=== PATIENT | male | born 1965 | race Caucasian/White ===

== ENCOUNTER → 2017-11-26 11:01 | Outpatient (REF) | payer MEDICARE, BC, SELFPAY ==
[2017-11-26 13:51] LABS: Chol/HDL Ratio 7.7 (1-3.5); Cholesterol 307 mg/dL (140-200); HDL Cholesterol 40 mg/dL (27-67)
[2017-11-26 13:54] LABS: Triglycerides 421 mg/dL (30-200)
[2017-11-26 14:01] LABS: Alanine Aminotransferase 26 U/L (12-78); Albumin Level 3.8 gm/dL (3.4-5.0); Albumin/Globulin Ratio 1.1 (1.1-1.8); Alkaline Phosphatase 84 U/L (46-116); Anion Gap 13.5 mEq/L (5-15); Aspartate Amino Transferase 18 U/L (15-37); Bilirubin,Total 0.3 mg/dL (0.2-1.0); Blood Urea Nitrogen 18 mg/dL (7-18); Calcium 8.9 mg/dL (8.5-10.1); Carbon Dioxide 26 mmol/L (21.0-32.0); Chloride 106 mmol/L (98-107); Creatinine,Serum 0.99 mg/dL (0.70-1.30); Estimated Glomerular Filt Rate 79 ml/min (>60); Free T4 (Free Thyroxine) 1.32 ng/dl (0.76-1.46); GFR (African American) 96 ML/MIN (>60); Globulin 3.6 gm/dl (1.3-3.2); Glucose 122 mg/dL (74-106); Potassium 5.5 mmoL/L (3.5-5.1); Sodium 140 mmol/L (136-145); Thyroid Stimulating Hormone 3.82 uIU/ml (0.358-3.740); Total Protein,Serum 7.4 gm/dL (6.4-8.2)
[2017-11-26 14:15] LABS: Basophils # 0.1 K/mm3 (0-0.2); Basophils % 0.8 % (0.1-2.0); Eosinophils # 0.3 K/mm3 (0.0-0.4); Hematocrit 38.7 % (42.0-52.0); Hemoglobin 15.4 g/dL (14.1-18.0); Lymphocytes # 2.7 K/mm3 (0.7-4.5); Lymphocytes % 31.3 K/mm3 (10-50); Mean Corpuscular HGB Conc 39.8 g/dL (31.8-35.4); Mean Corpuscular Hemoglobin 37.6 pg (27.0-31.2); Mean Corpuscular Volume 94.5 fl (80-94); Mean Platelet Volume 9.8 fl (7.4-10.4); Monocytes # 0.6 K/mm3 (0.1-1.0); Monocytes % 6.5 % (1.7-9.3); Neutrophils % 57.4 % (37.0-80.0); Platelet Count 208 K/mm3 (142-424); Red Cell Distribution Width 13.8 % (11.5-17.5); White Blood Count 8.6 K/mm3 (4.8-10.8)
[2017-11-26 15:03] LABS: Erythrocyte Sedimentation Rate 15 mm/hr (0-20)
[2017-11-26 19:47] LABS: Amphetamine/Metha Screen,Urine Negative ng/mL (<1000); Barbiturates Screen,Urine Negative ng/mL (<200); Benzodiazepines Screen,Urine Negative ng/mL (200); Cannabinoid Screen,Urine Negative ng/mL (<50); Cocaine Screen,Urine Negative ng/g (<300); Methadone Screen,Urine Negative ng/mL (<300); Opiate Screen,Urine Negative ng/mL (<300); Phencyclidine Screen,Urine Negative ng/mL (<25)
[2017-11-27 20:13] LABS: Vitamin D 25 Hydroxy 20.3 ng/mL (30.0-100.0)
== END ==
LOC: LAB 11:01
PROVIDERS: Visit Provider Nurse Practitioner Family
DX: M54.2 Cervicalgia (principal); R53.83 Other fatigue; Z79.899 Other long term (current) drug therapy; M25.50 Pain in unspecified joint; R73.9 Hyperglycemia, unspecified
CPT/HCPCS: 80053; 80061; 80305; 82652; 83036; 84439; 84443; 85025; 85651

== ENCOUNTER → 2017-11-26 15:15 | Outpatient (CLI) | payer MEDICARE, BC, SELFPAY | PROVIDERS: Visit Provider Nurse Practitioner Family | DX: R73.9 Hyperglycemia, unspecified (principal) | CPT/HCPCS: 83036 ==

== ENCOUNTER 2017-12-01 10:21 | Outpatient (CLI) | payer MEDICARE, BC, SELFPAY ==
--- NOTE | 2017-12-01 10:26 | XR_ITS ---
EXAM: XR lumbar spine 2-3V HISTORY: ITS.REASON: pain ORDERING PHYSICIAN: Freda Barragan PATIENT AGE: 52 years COMPARISON: None FINDINGS: Normal alignment. Minimal osteophyte formation along superior endplate of L4 No fracture or dislocation. No lytic or blastic change. No significant degenerative change. The disc spaces are preserved. Incidental vascular calcification with an aortic stent at the L2 level IMPRESSION: Minimal degenerative change otherwise negative lumbar spine
--- NOTE | 2017-12-01 10:26 | XR_ITS ---
EXAM: XR cervical spine 2V HISTORY: Neck pain ITS.REASON: pain ORDERING PHYSICIAN: Freda Barragan PATIENT AGE: 52 years COMPARISON: None FINDINGS: Normal alignment. No fracture or dislocation. No lytic or blastic change. No significant degenerative change. The disc spaces are preserved. Incidental carotid calcifications noted on the left. Vascular stent is present at the left subclavian or carotid origin IMPRESSION: 1. Negative cervical spine. 2. Incidental left carotid calcifications
[2017-12-01 11:24] LABS: PHA INR Fingerstick 1.2 (0.9-1.1)
== END 2017-12-01 11:30 | disposition home or self-care (01) ==
LOC: ACC 10:24
PROVIDERS: PCP Nurse Practitioner Family; Visit Provider Nurse Practitioner Family
DX: Z79.01 Long term (current) use of anticoagulants (principal); Z51.81 Encounter for therapeutic drug level monitoring; I82.409 Acute embolism and thrombosis of unspecified deep veins of unspecified lower extremity; M54.2 Cervicalgia; M54.5 Low back pain
CPT/HCPCS: 72040; 72100; 85610; 99211; G0463

== ENCOUNTER 2017-12-08 11:31 | Outpatient (CLI) | payer MEDICARE, BC, SELFPAY ==
[2017-12-08 15:02] LABS: PHA INR Fingerstick 3.2 (0.9-1.1)
== END 2017-12-08 15:04 | disposition home or self-care (01) ==
LOC: ACC 11:32
PROVIDERS: PCP Emergency Medicine; Visit Provider Emergency Medicine
DX: Z79.01 Long term (current) use of anticoagulants (principal); Z51.81 Encounter for therapeutic drug level monitoring; Z86.718 Personal history of other venous thrombosis and embolism
CPT/HCPCS: 85610; 99211; G0463

== ENCOUNTER 2017-12-16 11:31 | Outpatient (CLI) | payer MEDICARE, BC, SELFPAY ==
[2017-12-16 12:36] LABS: INR 6.45 (0.9-1.1); Prothrombin Time 62.9 seconds (9.4-11.8)
== END 2017-12-17 10:42 | disposition home or self-care (01) ==
LOC: ACC 11:32
PROVIDERS: PCP Emergency Medicine; Visit Provider Emergency Medicine
DX: Z79.01 Long term (current) use of anticoagulants (principal); Z51.81 Encounter for therapeutic drug level monitoring; Z86.718 Personal history of other venous thrombosis and embolism
CPT/HCPCS: 36415; 85610; 99211; G0463

== ENCOUNTER 2017-12-21 11:18 | Outpatient (CLI) | payer MEDICARE, BC, SELFPAY ==
[2017-12-21 13:23] LABS: PHA INR Fingerstick 2.4 (0.9-1.1)
== END 2017-12-21 13:24 | disposition home or self-care (01) ==
LOC: ACC 11:21
PROVIDERS: PCP Emergency Medicine; Visit Provider Nurse Practitioner Family
DX: Z86.718 Personal history of other venous thrombosis and embolism (principal); Z51.81 Encounter for therapeutic drug level monitoring; Z79.01 Long term (current) use of anticoagulants
CPT/HCPCS: 85610; 99211; G0463

== ENCOUNTER 2017-12-25 10:53 | Outpatient (CLI) | payer MEDICARE, BC, SELFPAY ==
[2017-12-25 12:04] LABS: PHA INR Fingerstick 2.3 (0.9-1.1)
== END 2017-12-25 15:55 | disposition home or self-care (01) ==
LOC: ACC 10:54
PROVIDERS: Nurse Practitioner Family; PCP Emergency Medicine; Visit Provider Emergency Medicine
DX: Z79.01 Long term (current) use of anticoagulants (principal); Z51.81 Encounter for therapeutic drug level monitoring; Z86.718 Personal history of other venous thrombosis and embolism
CPT/HCPCS: 85610; 99211; G0463

== ENCOUNTER 2017-12-29 13:47 | Outpatient (RCR) | payer MEDICARE, BC, SELFPAY | END 2017-12-29 13:48 | disposition home or self-care (01) | LOC: OT 13:47 | PROVIDERS: PCP Emergency Medicine; Visit Provider Emergency Medicine | DX: M79.642 Pain in left hand (principal) | CPT/HCPCS: 97110; 97165 ==

== ENCOUNTER → 2018-01-05 13:56 | Outpatient (CLI) | payer MEDICARE, BC, SELFPAY ==
[2018-01-05 15:25] LABS: Blood Urea Nitrogen 26 mg/dL (7-18); Calcium 9.4 mg/dL (8.5-10.1); Carbon Dioxide 26 mmol/L (21.0-32.0); Chloride 103 mmol/L (98-107); Creatinine,Serum 1.08 mg/dL (0.70-1.30); Estimated Glomerular Filt Rate 72 ml/min (>60); GFR (African American) 87 ML/MIN (>60); Glucose 132 mg/dL (74-106); Sodium 141 mmol/L (136-145)
== END ==
PROVIDERS: Internal Medicine Cardiovascular Disease; Nurse Practitioner Family; PCP Emergency Medicine; Visit Provider Emergency Medicine
DX: Z79.01 Long term (current) use of anticoagulants (principal); Z51.81 Encounter for therapeutic drug level monitoring; Z86.718 Personal history of other venous thrombosis and embolism
CPT/HCPCS: 36415; 80048; 85610

== ENCOUNTER → 2018-01-15 06:55 | Outpatient (CLI) | payer MEDICARE, BC, SELFPAY ==
--- NOTE | 2018-01-15 06:56 | CA_ITS ---
PROCEDURE: 2-D M-mode and color Doppler study INDICATIONS FOR THE TEST: Chest pain+ COPD Heart Murmur Tobacco Smoking+ Palpitations Fatigue Syncope Edema Hypertension Diabetes Mellitus Rheumatic Fever SOB MAYO Obesity Hyperlipidemia Family History HD Additional History CAD, STENT PATIENT INFORMATION HEIGHT:71 WEIGHT:237 GENDER: Male B/P:148/92 2-D/M-MODE INTERPRETATION: 2-D MEASUREMENTS OBSERVED VALUES IN CMS Right Ventricular Dimension (RVDd) 2.2 Interventricular Septum (Thickness)(IVsd) 1.1 Left Ventricular Internal Dimensions(LVIDd) 4.5 Left Ventricular Posterior Wall (Thickness)(LVPWd) 1.0 Aortic Root 3.3 Aortic Cusp Separation 2.3 Left Atrial Dimensions (LAD) 4.8 2D 1. Left atrium is mildly enlarged, left ventricle is normal size, mild concentric left ventricular hypertrophy, visually estimated ejection fraction 55% with no obvious regional wall motion abnormality, septum has sigmoid configuration. 2. The right atrium and right ventricle are normal size and contractility. 3. The aortic valve is minimally thickened and fibrosed. 4. The mitral and tricuspid valve are grossly normal. 5. The pulmonic valve is poorly visualized. 6. No significant pericardial effusion noted. DOPPLER INTERROGATION: Doppler interrogation of the aortic, mitral and tricuspid valvular presence of mild mitral and tricuspid regurgitation, tricuspid regurgitant jet velocity is insufficient for calculation of the right ventricular systolic pressure, grade 1 diastolic dysfunction seen without tissue Doppler evidence of raised left atrial pressure. CONCLUSION: 1. Mildly enlarged left atrium, normal left ventricular size, mild concentric left ventricular hypertrophy, visually estimated ejection fraction 55% with no obvious regional wall motion abnormality, septum has sigmoid configuration. Grade 1 diastolic dysfunction seen without tissue Doppler evidence of raised left atrial pressure. 2. Mild mitral and tricuspid regurgitation 3. No significant pericardial effusion noted.
--- NOTE | 2018-01-15 06:56 | NM_ITS ---
History and Indications: Hypertension, hyperlipidemia, tobacco use, family history, chest pain, shortness of breath, palpitations and fatigue Procedure: Patient received a 0.4 mg of Lexiscan, resting heart rate was 80 bpm, resting blood pressure 148/89, with Lexiscan maximum heart rate achieved was 98 bpm is less than 85% of the maximum predicted heart rate and a blood pressure was 110/65. With Lexiscan patient complained of shortness of breath nausea and chest pressure Electrocardiogram: Resting echocardiogram showed sinus rhythm nonspecific ST-T changes, with Lexiscan there is less than 1.[address] segment depression noted from the baseline EKG. The EKG portion of the Lexiscan Myoview is nondiagnostic. Cardiac stress and resting SPECT images: Cardiac stress and rest SPECT images were obtained using technetium 99 Myoview 31.0 mCi at stress and 10.7 mCi at rest. Gated SPECT further analysis of segmental wall motion and calculation of the ejection fraction also done. Cardiac stress and rest images show a mild fixed defect in the inferior wall with normal contractility in the gated SPECT is likely secondary to soft tissue attenuation from diaphragm, no reversible ischemia seen. Computer derived ejection fraction is 56% with no obvious regional wall motion abnormality, right ventricle is normal size and contractility. Conclusion: 1. The EKG portion of the Lexiscan Myoview is nondiagnostic. 2. No obvious scintigraphic evidence of reversible ischemia seen, computer derived ejection fraction is 56% with no obvious regional wall motion abnormality, right ventricle is normal size and contractility. 3. Normal Lexiscan Myoview study
== END ==
PROVIDERS: PCP Emergency Medicine; Visit Provider Internal Medicine Cardiovascular Disease
DX: R94.31 Abnormal electrocardiogram [ECG] [EKG] (principal); I10 Essential (primary) hypertension; E78.2 Mixed hyperlipidemia; F17.200 Nicotine dependence, unspecified, uncomplicated; Z86.718 Personal history of other venous thrombosis and embolism
CPT/HCPCS: 78452; 93017; 93306; A9502; J2785

== ENCOUNTER → 2018-01-26 11:28 | Outpatient (REF) | payer MEDICARE, BC, SELFPAY ==
[2018-01-26 15:46] LABS: Amphetamine/Metha Screen,Urine Negative ng/mL (<1000); Barbiturates Screen,Urine Negative ng/mL (<200); Benzodiazepines Screen,Urine Negative ng/mL (<200); Cannabinoid Screen,Urine Negative ng/mL (<50); Cocaine Screen,Urine Negative ng/mL (<300); Methadone Screen,Urine Negative ng/mL (<300); Opiate Screen,Urine Negative ng/mL (<300); Phencyclidine Screen,Urine Negative ng/mL (<25)
== END ==
LOC: LAB 11:28
PROVIDERS: Visit Provider Nurse Practitioner Family
DX: M54.5 Low back pain (principal)
CPT/HCPCS: 80305

== ENCOUNTER → 2018-01-27 10:12 | Outpatient (CLI) | payer MEDICARE, BC, SELFPAY ==
[2018-01-27 10:41] LABS: INR 1.85 (0.9-1.1); Prothrombin Time 18.7 seconds (9.4-11.8)
[2018-01-27 11:21] LABS: Anion Gap 13.1 mEq/L (5-15); Blood Urea Nitrogen 18 mg/dL (7-18); Calcium 8.5 mg/dL (8.5-10.1); Carbon Dioxide 27 mmol/L (21.0-32.0); Chloride 106 mmol/L (98-107); Creatinine,Serum 1.15 mg/dL (0.70-1.30); Estimated Glomerular Filt Rate 66 ml/min (>60); GFR (African American) 80 ML/MIN (>60); Glucose 135 mg/dL (74-106); Potassium 4.1 mmoL/L (3.5-5.1); Sodium 142 mmol/L (136-145)
== END ==
PROVIDERS: Urology; PCP Emergency Medicine; Referring Provider Internal Medicine Cardiovascular Disease; Visit Provider Emergency Medicine
DX: Z79.01 Long term (current) use of anticoagulants (principal); Z51.81 Encounter for therapeutic drug level monitoring; I82.409 Acute embolism and thrombosis of unspecified deep veins of unspecified lower extremity
CPT/HCPCS: 36415; 80048; 85610

== ENCOUNTER 2018-02-04 13:00 | Outpatient (RCR) | payer MEDICARE, BC, SELFPAY ==
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
== END 2018-02-04 13:01 | disposition home or self-care (01) ==
LOC: PT 13:00
PROVIDERS: PCP Emergency Medicine; Visit Provider Emergency Medicine
DX: M54.9 Dorsalgia, unspecified (principal)
CPT/HCPCS: 97010; 97014; 97110; 97163; G0283

== ENCOUNTER → 2018-02-08 15:03 | Outpatient (POV) | payer MEDICARE, BC, SELFPAY ==
[2018-02-08 15:25] VITALS: BP 176/100; PULSE 106; RESP 18; O2SAT 98
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
== END ==
PROVIDERS: PCP Emergency Medicine; Visit Provider Clinical Nurse Specialist Family Health
DX: M54.5 Low back pain (principal)
CPT/HCPCS: 99202

== ENCOUNTER → 2018-02-16 10:19 | Outpatient (CLI) | payer MEDICARE, BC, SELFPAY | PROVIDERS: PCP Emergency Medicine; Visit Provider Clinical Nurse Specialist Family Health | DX: M54.5 Low back pain (principal); M51.36 Other intervertebral disc degeneration, lumbar region ==

== ENCOUNTER → 2018-02-18 11:16 | Outpatient (CLI) | payer MEDICARE, BC, SELFPAY ==
--- NOTE | 2018-02-18 11:18 | MR_ITS ---
MR lumbar spine wo con, MR 3-d myelogram/MRCP HISTORY: Low Back Pain with bilateral Leg pain, numbness, and tingling. ITS.REASON: BACK PAIN ORDERING PHYSICIAN: Eloise Zurita PATIENT AGE: 53 years Comparison: X-RAY 12/01/17 TECHNIQUE: Standard multiplanar multiecho sequences are performed without contrast. 3-D MIP and myelographic images are also rendered and reviewed FINDINGS: There is normal alignment. The spinal cord ends at the L1 level. Motion artifact is present on the axial images. T12-L4 has an unremarkable appearance. L4-5: Minimal concentric bulging disc with small broad-based central disc protrusion without impingement. L5-S1: Bulging disc with bilateral pars defects and mild facet hypertrophic change with moderate bilateral foraminal narrowing left slightly greater than right . IMPRESSION: 1. Minimal bulging disc with small central disc protrusion L4-L5. 2. Bulging disc with bilateral foraminal narrowing at L5-S1 left slightly greater than right along with bilateral pars defects without listhesis. 3. No extruded herniated disc evident
== END ==
PROVIDERS: PCP Emergency Medicine; Visit Provider Clinical Nurse Specialist Family Health
DX: M54.5 Low back pain (principal)
CPT/HCPCS: 72148; 76376

== ENCOUNTER → 2018-02-23 10:54 | Outpatient (POV) | payer MEDICARE, BC, SELFPAY ==
[2018-02-23 11:12] VITALS: BP 152/98; PULSE 97; RESP 18; O2SAT 98; BMI 34.4
--- NOTE | 2018-02-23 11:30 | HMH.PAINSOAP ---
[facility] Pain Management SOAP Note Subjective:: Patient is a pleasant 53-year-old white male who presents today for follow-up of his most recent MRI. Patient does have an L4-L5 bulging disc along with L5-S1 bulging disc. Patient states that his pain is constant he rates it a 7 out of 10 today. Patient states he has had epidural injections in the past however he states he also received OxyContin from his previous pain clinic. Patient and I discussed that we would not be putting him on OxyContin given the pathology. Patient states he has tried anti-inflammatories and failed them. Patient is on anticoagulation therapy. We will find out if he can come off of his Coumadin for injective therapy. Patient states his pain is in his low back and radiates into both of his legs. ROS General: no recent weight change, no fever, no sleep disturbances Respiratory: no cough, no shortness of air, no recurring pulmonary infections Cardiovascular/Peripheral Vascular: No chest pain, No palpitations, no edema, no shortness of breath. Gastrointestinal: no incontinence, normal bowel movements reported Genitourinary: no incontinence Musculoskeletal: Back pain, leg pain Psychiatric: normal mood/ affect Neurological: [denies weakness in extremities], [denies balance issues] Objective:: Physical Exam General: Alert and oriented x3, no acute distress, pleasant and cooperative, [on room air] Lungs: Resps E/U, Symmetrical chest expansion, Eyes: PERRL Musculoskeletal: Flexion and extension of lumbar spine somewhat guarded secondary to pain, deep tendon reflexes normal, strength in upper and lower extremities [5/5], slightly antalgic gait noted, positive straight leg test bilaterally at 30? 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 I will follow-up with the patient after his injection and reassess his symptoms. Patient is on Coumadin therapy and understands he has to be off of this prior to his injection. We will make sure that he can come off of it. Patient's tried and failed physical therapy, anti-inflammatories. Patient is continuing a home stretching regimen. Patient states that his previous pain clinic he was getting epidurals along with OxyContin. I discussed with him that given his pathology we would not be putting him on any narcotics at this time. This note was dictated using voice recognition software and may contain errors or omissions
--- NOTE | 2018-02-23 11:34 | P.CONS_ITS ---
[facility] Pain Management SOAP Note Subjective:: Patient is a pleasant 53-year-old white male who presents today for follow-up of his most recent MRI. Patient does have an L4-L5 bulging disc along with L5- S1 bulging disc. Patient states that his pain is constant he rates it a 7 out of 10 today. Patient states he has had epidural injections in the past however he states he also received OxyContin from his previous pain clinic. Patient and I discussed that we would not be putting him on OxyContin given the pathology. Patient states he has tried anti-inflammatories and failed them. Patient is on anticoagulation therapy. We will find out if he can come off of his Coumadin for injective therapy. Patient states his pain is in his low back and radiates into both of his legs. ROS General: no recent weight change, no fever, no sleep disturbances Respiratory: no cough, no shortness of air, no recurring pulmonary infections Cardiovascular/Peripheral Vascular: No chest pain, No palpitations, no edema, no shortness of breath. Gastrointestinal: no incontinence, normal bowel movements reported Genitourinary: no incontinence Musculoskeletal: Back pain, leg pain Psychiatric: normal mood/ affect Neurological: [denies weakness in extremities], [denies balance issues] Objective:: Physical Exam General: Alert and oriented x3, no acute distress, pleasant and cooperative, [ on room air] Lungs: Resps E/U, Symmetrical chest expansion, Eyes: PERRL Musculoskeletal: Flexion and extension of lumbar spine somewhat guarded secondary to pain, deep tendon reflexes normal, strength in upper and lower extremities [5/5], slightly antalgic gait noted, positive straight leg test bilaterally at 30? 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 I will follow-up with the patient after his injection and reassess his symptoms. Patient is on Coumadin therapy and understands he has to be off of this prior to his injection. We will make sure that he can come off of it. Patient's tried and failed physical therapy, anti-inflammatories. Patient is continuing a home stretching regimen. Patient states that his previous pain clinic he was getting epidurals along with OxyContin. I discussed with him that given his pathology we would not be putting him on any narcotics at this time. This note was dictated using voice recognition software and may contain errors or omissions
--- NOTE | 2018-02-23 15:58 | PC.NURSE ---
APPROVAL OBTAINED FOR PT TO DISCONTINUE COUMADIN 5-7 DAYS PRIOR TO LUMBAR EPIDURAL STEROID INJECTION PER DR MENDEZ.
== END ==
PROVIDERS: PCP Emergency Medicine; Visit Provider Clinical Nurse Specialist Family Health
DX: M51.16 Intervertebral disc disorders with radiculopathy, lumbar region (principal)
CPT/HCPCS: 99213

== ENCOUNTER 2018-02-24 10:44 | Outpatient (CLI) | payer MEDICARE, BC, SELFPAY ==
[2018-02-24 12:50] LABS: PHA INR Fingerstick 1.1 (0.9-1.1)
== END 2018-02-24 13:10 | disposition home or self-care (01) ==
LOC: ACC 10:45
PROVIDERS: PCP Emergency Medicine; Visit Provider Emergency Medicine
DX: Z79.01 Long term (current) use of anticoagulants (principal); Z51.81 Encounter for therapeutic drug level monitoring
CPT/HCPCS: 85610; 99211; G0463

== ENCOUNTER → 2018-03-01 11:47 | Outpatient (REF) | payer MEDICARE, BC, SELFPAY ==
[2018-03-01 14:03] LABS: Amphetamine/Metha Screen,Urine Negative ng/mL (<1000); Barbiturates Screen,Urine Negative ng/mL (<200); Benzodiazepines Screen,Urine Negative ng/mL (<200); Cannabinoid Screen,Urine Negative ng/mL (<50); Cocaine Screen,Urine Negative ng/mL (<300); Methadone Screen,Urine Negative ng/mL (<300); Opiate Screen,Urine Negative ng/mL (<300); Phencyclidine Screen,Urine Negative ng/mL (<25)
== END ==
LOC: LAB 11:47
PROVIDERS: Visit Provider Nurse Practitioner Family
DX: M54.5 Low back pain (principal)
CPT/HCPCS: 80305

== ENCOUNTER → 2018-08-11 18:53 | Outpatient (CLI) | payer MEDICARE, BC, SELFPAY ==
[2018-08-11 19:18] LABS: Anion Gap 16.4 mEq/L (5-15); Blood Urea Nitrogen 24 mg/dL (7-18); Calcium 9.4 mg/dL (8.5-10.1); Carbon Dioxide 22 mmol/L (21.0-32.0); Chloride 106 mmol/L (98-107); Creatinine,Serum 1.09 mg/dL (0.70-1.30); Estimated Glomerular Filt Rate 70 ml/min (>60); GFR (African American) 85 ML/MIN (>60); Glucose 161 mg/dL (74-106); Potassium 4.4 mmoL/L (3.5-5.1); Sodium 140 mmol/L (136-145)
== END ==
PROVIDERS: Visit Provider Emergency Medicine
DX: R51 Headache (principal)
CPT/HCPCS: 80048

== ENCOUNTER → 2018-09-08 15:15 | Outpatient (CLI) | payer MEDICARE, BC, SELFPAY ==
[2018-09-08 16:17] LABS: Amphetamine/Metha Screen,Urine Negative ng/mL (<1000); Barbiturates Screen,Urine Negative ng/mL (<200); Benzodiazepines Screen,Urine Negative ng/mL (<200); Cannabinoid Screen,Urine Negative ng/mL (<50); Cocaine Screen,Urine Negative ng/mL (<300); Methadone Screen,Urine Negative ng/mL (<300); Opiate Screen,Urine Positive ng/mL (<300); Phencyclidine Screen,Urine Negative ng/mL (<25)
== END ==
PROVIDERS: Visit Provider Emergency Medicine
DX: M54.5 Low back pain (principal); Z79.891 Long term (current) use of opiate analgesic
CPT/HCPCS: 80305

== ENCOUNTER → 2018-11-05 13:58 | Outpatient (CLI) | payer MEDICARE, BC, SELFPAY ==
[2018-11-05 15:01] LABS: Amphetamine/Metha Screen,Urine Negative ng/mL (<1000); Barbiturates Screen,Urine Negative ng/mL (<200); Benzodiazepines Screen,Urine Negative ng/mL (<200); Cannabinoid Screen,Urine Negative ng/mL (<50); Cocaine Screen,Urine Negative ng/mL (<300); Methadone Screen,Urine Negative ng/mL (<300); Opiate Screen,Urine Negative ng/mL (<300); Phencyclidine Screen,Urine Negative ng/mL (<25)
[2018-11-15 09:08] LABS: Oxycodone (GC/MS) 538 ng/mL (Cutoff=100)
[2018-11-15 12:28] LABS: Opiates Negative (Cutoff=100); Oxymorphone (GC/MS) 508 ng/mL (Cutoff=100)
== END ==
PROVIDERS: Visit Provider Emergency Medicine
DX: Z79.899 Other long term (current) drug therapy (principal); M79.643 Pain in unspecified hand
CPT/HCPCS: 80305; 80361; 80365; G0480

== ENCOUNTER 2018-12-03 07:30 | Emergency (ER) | payer MEDICARE, BC, SELFPAY ==
[2018-12-03 07:33] VITALS: BP 116/74; PULSE 126; RESP 22; TEMP 36.7; O2SAT 98; BMI 30.7
--- NOTE | 2018-12-03 07:40 | PC.NURSE ---
when asked to provide a urine specimen pt provided a liquid that was clear in color and cold. When pt was asked about this to make sure it was urine or not, pt became aggrivated and stated I'll just leave
[2018-12-03 07:42] VITALS: BP 116/74; PULSE 126; RESP 22; TEMP 36.7; O2SAT 98
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
== END 2018-12-03 07:42 | disposition left against medical advice (07) ==
LOC: ER 07:56
PROVIDERS: Emergency Provider Emergency Medicine
DX: Z53.21 Procedure and treatment not carried out due to patient leaving prior to being seen by health care provider (principal); R20.2 Paresthesia of skin
CPT/HCPCS: G0463; 99211; 99281

== ENCOUNTER 2018-12-04 21:40 | Emergency (ER) | payer MEDICARE, BC, SELFPAY ==
[2018-12-04 21:41] VITALS: BP 139/56; PULSE 100; RESP 18; TEMP 36.7; O2SAT 98; BMI 31.2
--- NOTE | 2018-12-04 22:00 | XR_ITS ---
XR chest portable HISTORY: ITS.REASON: chest pain ORDERING PHYSICIAN: Ramesh Medina MD PATIENT AGE: 53 years COMPARISON: 11/10/2017 FINDINGS: Low lung lines. There is mild cardiomegaly without failure. Left hilum is slightly prominent and may be related to vasculature. Upright PA and lateral chest May BE of further value. Linear densities present in the right lung base consistent with an area of atelectasis. The remaining lungs are clear. IMPRESSION: Low lung volumes with cardiomegaly, prominent left hilum, and right basilar atelectasis. Suggest PA and lateral chest for further evaluation
[2018-12-04 22:15] LABS: Basophils # 0.1 K/mm3 (0-0.2); Basophils % 0.6 % (0.1-2.0); Eosinophils # 0.5 K/mm3 (0.0-0.4); Eosinophils % 5.5 % (0.1-12.0); Hematocrit 36.3 % (42.0-52.0); Hemoglobin 12.6 g/dL (14.1-18.0); Lymphocytes # 2.3 K/mm3 (0.7-4.5); Lymphocytes % 26.1 % (10-50); Mean Corpuscular HGB Conc 34.6 g/dL (31.8-35.4); Mean Corpuscular Hemoglobin 30.7 pg (27.0-31.2); Mean Corpuscular Volume 88.9 fl (80-94); Mean Platelet Volume 9.1 fl (7.4-10.4); Monocytes # 0.6 K/mm3 (0.1-1.0); Monocytes % 6.9 % (1.7-9.3); Neutrophils # 5.3 K/mm3 (1.8-7.8); Neutrophils % 60.9 % (37.0-80.0); Platelet Count 215 K/mm3 (142-424); Red Blood Count 4.09 M/mm3 (4.60-6.20); Red Cell Distribution Width 13.7 % (11.5-17.5); White Blood Count 8.7 K/mm3 (4.8-10.8)
[2018-12-04 22:28] LABS: Alanine Aminotransferase 30 U/L (12-78); Albumin Level 3.3 gm/dL (3.4-5.0); Albumin/Globulin Ratio 0.9 (1.1-1.8); Alkaline Phosphatase 108 U/L (46-116); Anion Gap 13.2 mEq/L (5-15); Aspartate Amino Transferase 28 U/L (15-37); Bilirubin,Total 0.2 mg/dL (0.2-1.0); Blood Urea Nitrogen 30 mg/dL (7-18); Calcium 7.7 mg/dL (8.5-10.1); Carbon Dioxide 28 mmol/L (21.0-32.0); Chloride 104 mmol/L (98-107); Creatinine Clearance Estimated 71 mL/min (50-200); Creatinine,Serum 1.71 mg/dL (0.70-1.30); Estimated Glomerular Filt Rate 42 ml/min (>60); GFR (African American) 51 ML/MIN (>60); Globulin 3.6 gm/dl (1.3-3.2); Glucose 141 mg/dL (74-106); Potassium 3.2 mmoL/L (3.5-5.1); Salicylate 2.2 mg/dL (2.8-20.0); Sodium 142 mmol/L (136-145); Total Protein,Serum 6.9 gm/dL (6.4-8.2)
[2018-12-04 22:34] LABS: Acetaminophen 0 ug/mL (10-30); Ethyl Alcohol 0 mg/dL (0-99)
[2018-12-04 22:49] VITALS: BP 123/78; PULSE 98; RESP 20; O2SAT 99
--- NOTE | 2018-12-04 22:50 | PC.NURSE ---
Pt sleeping, no signs of distress noted, will continue to monitor.
[2018-12-05 00:16] VITALS: BP 144/71; PULSE 97; RESP 16; O2SAT 98
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
--- NOTE | 2018-12-05 00:34 | PC.NURSE ---
clerk supervisor aware of the situation.
--- NOTE | 2018-12-05 00:35 | PC.NURSE ---
stockroom supervisor at the pts bedside at this time.
--- NOTE | 2018-12-05 00:36 | PC.NURSE ---
PD is here.
--- NOTE | 2018-12-05 00:40 | PC.NURSE ---
PD is with the pt at this time, staff is no longer at the bedside.
--- NOTE | 2018-12-05 00:44 | HMH.EDGENADL ---
ED Disposition Clinical Impression: Overdose, Poisoning by opiate or related narcotic Disposition: Home, Self-Care Condition on Discharge: Fair Instructions: DI for Drug Overdose in Adults Referrals: Provider,Referral, [Primary Care Provider] - Time of Disposition: 02:00 - Critical Care Critical Care Time: No Attestation: On 12/04/18, the high probability of a clinically significant, sudden or life threatening deterioration of the following system(s) required my full and direct attention, intervention and personal management. The time I documented below is in addition to time spent performing reported procedures but includes the following listed in this critical care notation. Medical Decision Making - Medical Records Medical records reviewed: Yes: I reviewed the patient's medical records. - Taqueria Inquiry Pt receiving controlled substance: No Taqueria was queried for this patient: No Vital Signs: 12/04/18 21:41 12/04/18 22:49 12/05/18 00:16 Temperature 98.0 F Temperature Source Oral Pulse Rate Pulse Rate [Right Brachial] 100 H 98 H 97 H Respiratory Rate 18 20 16 Blood Pressure Blood Pressure [Right Arm] 139/56 L 123/78 144/71 H Blood Pressure Mean [Right Arm] 83 93 95 Blood Pressure Source [Right Arm] Automatic Cuff Automatic Cuff Automatic Cuff Blood Pressure Position [Right Arm] Sitting Sitting Sitting 02 Sat by Pulse Oximetry 98 99 98 Oxygen Delivery Method Room Air Room Air Room Air 12/05/18 01:37 Temperature 0 F L Temperature Source Pulse Rate 0 L Pulse Rate [Right Brachial] Respiratory Rate 16 Blood Pressure 000/00 L Blood Pressure [Right Arm] Blood Pressure Mean [Right Arm] Blood Pressure Source [Right Arm] Blood Pressure Position [Right Arm] 02 Sat by Pulse Oximetry Oxygen Delivery Method Room Air - Lab Data Lab results reviewed: Yes: I reviewed the patient's lab results. Lab Results 12/04/18 21:55: WBC 8.7, RBC 4.09 L, Hgb 12.6 L, Hct 36.3 L, MCV 88.9, MCH 30.7, MCHC 34.6, RDW 13.7, Plt Count 215, MPV 9.1, Neut % (Auto) 60.9, Lymph % (Auto) 26.1, [place] % (Auto) 6.9, Eos % (Auto) 5.5, Baso % (Auto) 0.6, Neut # (Auto) 5.3, Lymph # (Auto) 2.3, [place] # (Auto) 0.6, Eos # (Auto) 0.5 H, Baso # (Auto) 0.1 12/04/18 21:55: Sodium 142, Potassium 3.2 L, Chloride 104, Carbon Dioxide 28, Anion Gap 13.2, BUN 30 H, Creatinine 1.71 H, Estimated Creat Clear 71, Estimated GFR 42 L, Est GFR ( Amer) 51 L, Glucose 141 H, Calcium 7.7 L, Total Bilirubin 0.2, AST 28, ALT 30, Alkaline Phosphatase 108, Total Protein 6.9, Albumin 3.3 L, Globulin 3.6 H, Albumin/Globulin Ratio 0.9 L, Salicylates 2.2 L, Acetaminophen 0 L, Plasma/Serum Alcohol 0 12/05/18 00:47: Urine Color Yellow, Urine Appearance Clear, Urine pH 6.0, Ur Specific [place] 1.025, Urine Protein Negative, Urine Glucose (UA) Negative, Urine Ketones Negative, Urine Blood Negative, Urine Nitrate Negative, Urine Bilirubin Negative, Urine Urobilinogen 0.2, Ur Leukocyte Esterase Negative, Urine WBC Occasional, Amorphous Sediment Trace 12/05/18 00:47: Urine Opiates Screen Positive H, Urine Methadone Screen Negative, Ur Barbituates Screen Negative, Ur Phencyclidine Scrn Negative, Ur Amphetamines Screen Positive H, U Benzodiazepines Scrn Negative, Urine Cocaine Screen Negative, U Marijuana (THC) Screen Negative Result diagrams: 12/04/18 21:55 12/04/18 21:55 Orders (Tests/Meds): ED MEDICATIONS Discontinued Medications Generic Name Dose Route Start Last Admin Trade Name Selena PRN Reason Stop Dose Admin Sodium Chloride 1,000 mls @ 999 mls/hr 12/04/18 22:30 12/04/18 22:24 Sod Chlor 0.9% 1000ml Bag IV 12/04/18 23:30 999 mls/hr .Q1H1M ALIZE Administration Lactated Ringer's 1,000 mls @ 999 mls/hr 12/05/18 00:30 Lactated Ringer's 1000 Ml Bag IV 12/05/18 01:30 .Q1H1M ALIZE Naloxone HCl 2 mg 12/05/18 01:10 12/05/18 00:30 Narcan 2mg/2ml Syringe IV 12/05/18 01:11 2 mg ONCE ONE Administration ORDERS Categ[facility]
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
[2018-12-05 00:54] LABS: Microscopic, Urine URINE MICROSCOPIC (MICROSCOPIC)
--- NOTE | 2018-12-05 00:54 | ED_ITS ---
ED Disposition Clinical Impression: Overdose, Poisoning by opiate or related narcotic Disposition: Home, Self-Care Condition on Discharge: Fair Instructions: DI for Drug Overdose in Adults Referrals: Provider,Referral, [Primary Care Provider] - Time of Disposition: 02:00 - Critical Care Critical Care Time: No Attestation: On 12/04/18, the high probability of a clinically significant, sudden or life threatening deterioration of the following system(s) required my full and direct attention, intervention and personal management. The time I documented below is in addition to time spent performing reported procedures but includes the following listed in this critical care notation. Medical Decision Making - Medical Records Medical records reviewed: Yes: I reviewed the patient's medical records. - Taqueria Inquiry Pt receiving controlled substance: No Taqueria was queried for this patient: No Vital Signs: 12/04/18 21:41 12/04/18 22:49 12/05/18 00:16 Temperature 98.0 F Temperature Source Oral Pulse Rate Pulse Rate [Right Brachial] 100 H 98 H 97 H Respiratory Rate 18 20 16 Blood Pressure Blood Pressure [Right Arm] 139/56 L 123/78 144/71 H Blood Pressure Mean [Right Arm] 83 93 95 Blood Pressure Source [Right Arm] Automatic Cuff Automatic Cuff Automatic Cuff Blood Pressure Position [Right Arm] Sitting Sitting Sitting 02 Sat by Pulse Oximetry 98 99 98 Oxygen Delivery Method Room Air Room Air Room Air 12/05/18 01:37 Temperature 0 F L Temperature Source Pulse Rate 0 L Pulse Rate [Right Brachial] Respiratory Rate 16 Blood Pressure 000/00 L Blood Pressure [Right Arm] Blood Pressure Mean [Right Arm] Blood Pressure Source [Right Arm] Blood Pressure Position [Right Arm] 02 Sat by Pulse Oximetry Oxygen Delivery Method Room Air - Lab Data Lab results reviewed: Yes: I reviewed the patient's lab results. Lab Results 12/04/18 21:55: WBC 8.7, RBC 4.09 L, Hgb 12.6 L, Hct 36.3 L, MCV 88.9, MCH 30.7, MCHC 34.6, RDW 13.7, Plt Count 215, MPV 9.1, Neut % (Auto) 60.9, Lymph % (Auto) 26.1, [place] % (Auto) 6.9, Eos % (Auto) 5.5, Baso % (Auto) 0.6, Neut # (Auto) 5.3, Lymph # (Auto) 2.3, [place] # (Auto) 0.6, Eos # (Auto) 0.5 H, Baso # (Auto) 0.1 12/04/18 21:55: Sodium 142, Potassium 3.2 L, Chloride 104, Carbon Dioxide 28, Anion Gap 13.2, BUN 30 H, Creatinine 1.71 H, Estimated Creat Clear 71, Estimated GFR 42 L, Est GFR ( Amer) 51 L, Glucose 141 H, Calcium 7.7 L, Total Bilirubin 0.2, AST 28, ALT 30, Alkaline Phosphatase 108, Total Protein 6.9, Albumin 3.3 L, Globulin 3.6 H, Albumin/Globulin Ratio 0.9 L, Salicylates 2.2 L, Acetaminophen 0 L, Plasma/Serum Alcohol 0 12/05/18 00:47: Urine Color Yellow, Urine Appearance Clear, Urine pH 6.0, Ur Specific [place] 1.025, Urine Protein Negative, Urine Glucose (UA) Negative, Urine Ketones Negative, Urine Blood Negative, Urine Nitrate Negative, Urine Bilirubin Negative, Urine Urobilinogen 0.2, Ur Leukocyte Esterase Negative, Urine WBC Occasional, Amorphous Sediment Trace 12/05/18 00:47: Urine Opiates Screen Positive H, Urine Methadone Screen Negative, Ur Barbituates Screen Negative, Ur Phencyclidine Scrn Negative, Ur Amphetamines Screen Positive H, U Benzodiazepines Scrn Negative, Urine Cocaine Screen Negative, U Marijuana (THC) Screen Negative Result diagrams
[2018-12-05 00:56] LABS: Appearance,Urine CLEAR (Clear); Bilirubin,Urine Negative (Negative); Blood, Urine Negative (Negative); Color,Urine YELLOW (Yellow); Glucose,Urine (UA) Negative (Negative); Ketones,Urine Negative (Negative); Leukocyte Esterase,Urine Negative (Negative); Nitrate,Urine Negative (Negative); Protein,Urine Negative (Negative); Specific Gravity, Urine 1.025 (1.005-1.030); Urobilinogen,Urine 0.2 EU/dl (0.2)
[2018-12-05 01:01] LABS: Amorphous Sediment,Urine Trace /lpf; WBC,Urine Occasional #/hpf (0-3)
[2018-12-05 01:05] LABS: Amphetamine/Metha Screen,Urine Positive ng/mL (<1000); Barbiturates Screen,Urine Negative ng/mL (<200); Benzodiazepines Screen,Urine Negative ng/mL (<200); Cannabinoid Screen,Urine Negative ng/mL (<50); Cocaine Screen,Urine Negative ng/mL (<300); Methadone Screen,Urine Negative ng/mL (<300); Opiate Screen,Urine Positive ng/mL (<300); Phencyclidine Screen,Urine Negative ng/mL (<25)
--- NOTE | 2018-12-05 01:12 | PC.NURSE ---
0015 Pt unable to stay awake, consulted with Dr Medina an order for 2mg Narcan received.
--- NOTE | 2018-12-05 01:30 | PC.NURSE ---
police and family at bedside
[2018-12-05 01:37] VITALS: BP 000/00; PULSE 0; RESP 16; TEMP -17.7; TEMP 0; O2SAT 0
== END 2018-12-05 01:41 | disposition home or self-care (01) ==
PROVIDERS: Emergency Provider Emergency Medicine
DX: T40.1X1A Poisoning by heroin, accidental (unintentional), initial encounter (principal); I10 Essential (primary) hypertension; E03.9 Hypothyroidism, unspecified; F17.210 Nicotine dependence, cigarettes, uncomplicated
CPT/HCPCS: 71045; 80053; 80305; 80329; 81001; 85025; 93005; 96365; 96375; 99284; J2310

== ENCOUNTER 2018-12-06 05:51 | Inpatient (IN) | payer MEDICARE, BC, SELFPAY ==
[2018-12-06] VITALS (10 sets, daily range): BP systolic 126–183; BP diastolic 69–93; PULSE 90–128; RESP 17–20; TEMP 36.7–37; O2SAT 94–99; BMI 29.8; BMI 29.3
--- NOTE | 2018-12-06 06:10 | HMH.EDGENADL ---
ED Disposition Condition on Discharge: Fair - Critical Care Critical Care Time: No <Inderjit Echols - Last Filed: 12/06/18 07:59> Condition on Discharge: Good - Critical Care Critical Care Time: No <LeavittJesse - Last Filed: 12/06/18 10:12> Clinical Impression: Acute psychosis, Substance abuse Rhabdomyolysis Qualifiers: Rhabdomyolysis type: non-traumatic Qualified Code(s): M62.82 - Rhabdomyolysis Disposition: Admitted as Observation Attestation: On 12/06/18, the high probability of a clinically significant, sudden or life threatening deterioration of the following system(s) required my full and direct attention, intervention and personal management. The time I documented below is in addition to time spent performing reported procedures but includes the following listed in this critical care notation. Medical Decision Making - Taqueria Inquiry Pt receiving controlled substance: No - Lab Data Result diagrams: 12/06/18 06:25 12/06/18 06:25 <Inderjit Echols - Last Filed: 12/06/18 07:59> - Medical Records Medical records reviewed: Yes: I reviewed the patient's medical records. - Lab Data Lab results reviewed: Yes: I reviewed the patient's lab results. Result diagrams: 12/06/18 06:25 12/06/18 08:57 - CT Data CT Scan: Head Time Received: 10:[address] Reviewed: Yes: I have viewed the radiologist's interpretation Preliminary Findings: Normal/NAD - ECG Data Tracing #2 I reviewed this ECG and interpreted as documented below: Normal Sinus Rhythm: No (st 114 no stemi) <TreeJesse - Last Filed: 12/06/18 10:12> Vital Signs: 12/06/18 06:02 12/06/18 07:01 12/06/18 07:23 Temperature 98.6 F 98.6 F Temperature Source Oral Oral Pulse Rate 124 H Pulse Rate [Right] 128 H 101 H Respiratory Rate 20 20 20 Blood Pressure 138/86 Blood Pressure [Right Arm] 139/89 162/93 H Blood Pressure Mean [Right Arm] 105 116 Blood Pressure Source [Right Arm] Automatic Cuff Blood Pressure Position [Right Arm] Sitting Sitting 02 Sat by Pulse Oximetry 98 97 Oxygen Delivery Method Room Air Room Air Room Air 12/06/18 08:19 12/06/18 09:39 Temperature Temperature Source Pulse Rate Pulse Rate [Right] 107 H 105 H Respiratory Rate Blood Pressure Blood Pressure [Right Arm] 183/90 H 126/70 Blood Pressure Mean [Right Arm] 121 88 Blood Pressure Source [Right Arm] Blood Pressure Position [Right Arm] Supine 02 Sat by Pulse Oximetry 99 Oxygen Delivery Method - Lab Data Lab Results 12/06/18 06:25: WBC 13.2 H D, RBC 4.14 L, Hgb 12.8 L, Hct 36.1 L, MCV 87.4, MCH 30.9, MCHC 35.3, RDW 13.9, Plt Count 244, MPV 9.5, Neut % (Auto) 74.1, Lymph % (Auto) 17.3, [place] % (Auto) 5.7, Eos % (Auto) 2.3, Baso % (Auto) 0.6, Neut # (Auto) 9.8 H, Lymph # (Auto) 2.3, [place] # (Auto) 0.8, Eos # (Auto) 0.3, Baso # (Auto) 0.1 12/06/18 06:25: Sodium 143, Potassium 3.3 L, Chloride 105, Carbon Dioxide 29, Anion Gap 12.3, BUN 20 H D, Creatinine 1.24 D, Estimated Creat Clear 96, Estimated GFR 61, Est GFR ( Amer) 74 D, Glucose 108 H, Calcium 8.5 D, Total Bilirubin 0.5, AST 43 H D, ALT 34, Alkaline Phosphatase 103, Total Protein 7.1, Albumin 3.1 L, Globulin 4.0 H, Albumin/Globulin Ratio 0.8 L, Salicylates 2.6 L, Acetaminophen 0 L, Plasma/Serum Alcohol 0 12/06/18 06:25: Total Creatine Kinase 1160 H*, CK-MB (CK-2) 16.5 H*, CK-MB (CK-2) Rel Index 1.4, Troponin I < 0.02 12/06/18 08:10: Urine Opiates Screen Positive H, Urine Methadone Screen Negative, Ur Barbituates Screen Negative, Ur Phencyclidine Scrn Negative, Ur Amphetamines Screen Positive H, U Benzodiazepines Scrn Negative, Urine Cocaine Screen Negative, U Marijuana (THC) Screen Negative 12/06/18 08:10: Urine Color Yellow, Urine Appearance Clear, Urine pH 6.0, Ur Specific [place] 1.020, Urine Protein Negative, Urine Glucose (UA) Negative, Urine Ketones Trace, Urine Blood Negative, Urine Nitrate Negative, Urine Bilirubin Negative, Urine Urobilinogen 0.2, Ur Leukocyte [place]
--- NOTE | 2018-12-06 06:12 | PC.NURSE ---
pt here with police for medical clearance, pt is acting very hyper and states bugs are crawling under his skin, pt denies any S.I. at this time.
[2018-12-06 06:34] LABS: Basophils # 0.1 K/mm3 (0-0.2); Basophils % 0.6 % (0.1-2.0); Eosinophils # 0.3 K/mm3 (0.0-0.4); Eosinophils % 2.3 % (0.1-12.0); Hematocrit 36.1 % (42.0-52.0); Hemoglobin 12.8 g/dL (14.1-18.0); Lymphocytes # 2.3 K/mm3 (0.7-4.5); Lymphocytes % 17.3 % (10-50); Mean Corpuscular HGB Conc 35.3 g/dL (31.8-35.4); Mean Corpuscular Hemoglobin 30.9 pg (27.0-31.2); Mean Corpuscular Volume 87.4 fl (80-94); Mean Platelet Volume 9.5 fl (7.4-10.4); Monocytes # 0.8 K/mm3 (0.1-1.0); Monocytes % 5.7 % (1.7-9.3); Neutrophils # 9.8 K/mm3 (1.8-7.8); Neutrophils % 74.1 % (37.0-80.0); Platelet Count 244 K/mm3 (142-424); Red Blood Count 4.14 M/mm3 (4.60-6.20); Red Cell Distribution Width 13.9 % (11.5-17.5); White Blood Count 13.2 K/mm3 (4.8-10.8)
[2018-12-06 06:47] LABS: Alanine Aminotransferase 34 U/L (12-78); Albumin Level 3.1 gm/dL (3.4-5.0); Albumin/Globulin Ratio 0.8 (1.1-1.8); Alkaline Phosphatase 103 U/L (46-116); Anion Gap 12.3 mEq/L (5-15); Aspartate Amino Transferase 43 U/L (15-37); Bilirubin,Total 0.5 mg/dL (0.2-1.0); Carbon Dioxide 29 mmol/L (21.0-32.0); Chloride 105 mmol/L (98-107); Creatinine Clearance Estimated 96 mL/min (50-200); Creatinine,Serum 1.24 mg/dL (0.70-1.30); Estimated Glomerular Filt Rate 61 ml/min (>60); GFR (African American) 74 ML/MIN (>60); Glucose 108 mg/dL (74-106); Potassium 3.3 mmoL/L (3.5-5.1); Salicylate 2.6 mg/dL (2.8-20.0); Sodium 143 mmol/L (136-145); Total Protein,Serum 7.1 gm/dL (6.4-8.2)
[2018-12-06 06:49] LABS: Acetaminophen 0 ug/mL (10-30); Ethyl Alcohol 0 mg/dL (0-99)
[2018-12-06 06:58] LABS: Blood Urea Nitrogen 20 mg/dL (7-18)
[2018-12-06 07:05] LABS: Calcium 8.5 mg/dL (8.5-10.1)
[2018-12-06 07:06] LABS: CKMB Relative Index 1.4 U/L (0-4.0); Creatine Kinase 1160 U/L (39-308); Troponin I < 0.02 ng/ml (0.00-0.06)
[2018-12-06 07:07] LABS: Creatine Kinase MB 16.5 ng/ml (0.0-3.6)
[2018-12-06 08:24] LABS: Amphetamine/Metha Screen,Urine Positive ng/mL (<1000); Barbiturates Screen,Urine Negative ng/mL (<200); Benzodiazepines Screen,Urine Negative ng/mL (<200); Cannabinoid Screen,Urine Negative ng/mL (<50); Cocaine Screen,Urine Negative ng/mL (<300); Methadone Screen,Urine Negative ng/mL (<300); Opiate Screen,Urine Positive ng/mL (<300); Phencyclidine Screen,Urine Negative ng/mL (<25)
[2018-12-06 08:42] LABS: Microscopic, Urine URINE MICROSCOPIC (MICROSCOPIC)
[2018-12-06 08:44] LABS: Appearance,Urine CLEAR (Clear); Bilirubin,Urine Negative (Negative); Blood, Urine Negative (Negative); Color,Urine YELLOW (Yellow); Glucose,Urine (UA) Negative (Negative); Ketones,Urine TRACE (Negative); Leukocyte Esterase,Urine Negative (Negative); Nitrate,Urine Negative (Negative); Protein,Urine Negative (Negative); Urobilinogen,Urine 0.2 EU/dl (0.2)
[2018-12-06 08:53] LABS: Bacteria,Urine Trace /lpf; Squamous Epithelial Cell,Urine Occasional #/hpf (0-5); WBC,Urine Occasional #/hpf (0-3)
[2018-12-06 09:26] LABS: Anion Gap 13.9 mEq/L (5-15); Blood Urea Nitrogen 20 mg/dL (7-18); Calcium 7.7 mg/dL (8.5-10.1); Carbon Dioxide 25 mmol/L (21.0-32.0); Chloride 106 mmol/L (98-107); Creatine Kinase 1117 U/L (39-308); Creatinine Clearance Estimated 107 mL/min (50-200); Creatinine,Serum 1.11 mg/dL (0.70-1.30); Estimated Glomerular Filt Rate 69 ml/min (>60); GFR (African American) 84 ML/MIN (>60); Glucose 86 mg/dL (74-106); Sodium 142 mmol/L (136-145)
[2018-12-06 09:27] LABS: Potassium 2.9 mmoL/L (3.5-5.1)
--- NOTE | 2018-12-06 09:28 | PC.NURSE ---
er wants pt to be admitted due to low potassium
--- NOTE | 2018-12-06 09:28 | PC.NURSE ---
dr xie informed of critical labs
--- NOTE | 2018-12-06 09:31 | PC.NURSE ---
calling dr wiley who is on for service
--- NOTE | 2018-12-06 09:33 | CT_ITS ---
CT head/brain wo con HISTORY: Altered mental status, altered level consciousness, confusion/disorientation ITS.REASON: ams ORDERING PHYSICIAN: Inderjit Echols MD PATIENT AGE: 53 years COMPARISON: 08/17/2018 TECHNIQUE: Axial images obtained without contrast. Brain and bone windows reviewed. All CT scans at the facility use one or more dose reduction, viz: automated exposure control, ma/kV adjustment per patient size (including targeted exams where dose is matched to indication, i.e. head), or iterative reconstruction technique. FINDINGS: No midline shift, mass effect, intracranial hemorrhage, hydrocephalus, or extra-axial fluid collection is evident. The calvarium has an unremarkable appearance. There is opacification of the right mastoid sinus. There is also mild mucosal thickening of the ethmoid sinuses.. No sinus air-fluid levels.. IMPRESSION: No acute intracranial findings. Right mastoid and paranasal sinus disease
--- NOTE | 2018-12-06 10:00 | PC.NURSE ---
pt return from CT
--- NOTE | 2018-12-06 10:27 | PC.NURSE ---
report called to floor
[2018-12-06 10:35] LABS: Ammonia 31 umol/L (19-54)
[2018-12-06 10:52] LABS: Magnesium 1.5 mg/dL (1.4-2.2)
--- NOTE | 2018-12-06 11:12 | PC.NURSE ---
PATIENT HAS ARRIVED TO FLOOR AT THIS TIME. IS NOTED TO HAVE MANY AREAS THAT ARE SCRATCHED AND OPEN FROM PATIENT SCRATCHING. SHOWED NURSING STAFF A RED AREA NEAR GROIN THAT IS SCABBED OVER THAT HE STATES IS FROM THE BUGS THAT CAUSE HIM TO SCRATCH. FACE IS CUT FROM SCRATCHING, SKIN TEAR TO R ELBOW. PATIENT BECAME ANXIOUS WHEN PULSE OX PLACED ON FINGER YELLING OUT AND STATING THERE ARE BUGS UNDER HIS NAILS
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
--- NOTE | 2018-12-06 12:55 | SW/DCPLANNER ---
I have spoke with [employer], Ozzie Garnica. Ozzie came in to see this patient when his shift began this morning. Ozzie has stated that if patient was ready for discharge from the ED then [facility] was going to transport this patient to [facility]. Ozzie has stated that since patient has been admitted they will let us handle arrangement to [facility]. CM will evaluate this patient once patient is medically stable for discharge.
--- NOTE | 2018-12-06 13:16 | HMH.PHACONS ---
- Pharmacy Consult Date: 12/06/18 Time: 13:16 Referring provider: DR. SOLORIO Reason for Consult:: VANCOMYCIN DOSING Allergies and ADEs:: Allergies Allergy/AdvReac Type Severity Reaction Status Date / Time No Known Allergies Allergy Verified 11/05/18 10:39 Home Medications:: Home Medications Medication Instructions Recorded Confirmed Type amitriptyline 100 mg tablet 100 mg PO DAILY #90 tab 11/05/18 12/06/18 Rx amlodipine 10 mg tablet 10 mg PO DAILY #90 tab 11/05/18 12/06/18 Rx apixaban 5 mg tablet 5 mg PO BID #180 tab 11/05/18 12/06/18 Rx omeprazole 20 mg capsule,delayed 20 mg PO DAILY #90 cap 11/05/18 12/06/18 Rx release Losartan/Hydrochlorothiazide See Rx Instructions .ROUTE .COMPLEX 12/06/18 12/06/18 History [Hyzaar 100-12.5 Tablet] Metoprolol Tartrate See Rx Instructions .ROUTE .COMPLEX 12/06/18 12/06/18 History Oxycodone HCl/Acetaminophen 7.5 - 325 tab PO QID PRN 12/06/18 12/06/18 History [Percocet 7.5/325mg tablet] Pregabalin [Lyrica 300mg Cap] 300 mg PO BID 12/06/18 12/06/18 History Rosuvastatin Calcium See Rx Instructions .ROUTE .COMPLEX 12/06/18 12/06/18 History Height: 1.85 m Weight: 100.868 kg Laboratory Results:: Laboratory Results - last 24 hr 12/06/18 06:25: WBC 13.2 H D, RBC 4.14 L, Hgb 12.8 L, Hct 36.1 L, MCV 87.4, MCH 30.9, MCHC 35.3, RDW 13.9, Plt Count 244, MPV 9.5, Neut % (Auto) 74.1, Lymph % (Auto) 17.3, [place] % (Auto) 5.7, Eos % (Auto) 2.3, Baso % (Auto) 0.6, Neut # (Auto) 9.8 H, Lymph # (Auto) 2.3, [place] # (Auto) 0.8, Eos # (Auto) 0.3, Baso # (Auto) 0.1 12/06/18 06:25: Sodium 143, Potassium 3.3 L, Chloride 105, Carbon Dioxide 29, Anion Gap 12.3, BUN 20 H D, Creatinine 1.24 D, Estimated Creat Clear 96, Estimated GFR 61, Est GFR ( Amer) 74 D, Glucose 108 H, Calcium 8.5 D, Total Bilirubin 0.5, AST 43 H D, ALT 34, Alkaline Phosphatase 103, Total Protein 7.1, Albumin 3.1 L, Globulin 4.0 H, Albumin/Globulin Ratio 0.8 L, Salicylates 2.6 L, Acetaminophen 0 L, Plasma/Serum Alcohol 0 12/06/18 06:25: Total Creatine Kinase 1160 H*, CK-MB (CK-2) 16.5 H*, CK-MB (CK-2) Rel Index 1.4, Troponin I < 0.02 12/06/18 08:10: Urine Opiates Screen Positive H, Urine Methadone Screen Negative, Ur Barbituates Screen Negative, Ur Phencyclidine Scrn Negative, Ur Amphetamines Screen Positive H, U Benzodiazepines Scrn Negative, Urine Cocaine Screen Negative, U Marijuana (THC) Screen Negative 12/06/18 08:10: Urine Color Yellow, Urine Appearance Clear, Urine pH 6.0, Ur Specific [place] 1.020, Urine Protein Negative, Urine Glucose (UA) Negative, Urine Ketones Trace, Urine Blood Negative, Urine Nitrate Negative, Urine Bilirubin Negative, Urine Urobilinogen 0.2, Ur Leukocyte Esterase Negative, Urine WBC Occasional, Ur Squamous Epith Cells Occasional, Urine Bacteria Trace 12/06/18 08:57: Sodium 142, Potassium 2.9 L*, Chloride 106, Carbon Dioxide 25, Anion Gap 13.9, BUN 20 H, Creatinine 1.11, Estimated Creat Clear 107, Estimated GFR 69, Est GFR ( Amer) 84, Glucose 86 D, Calcium 7.7 L, Total Creatine Kinase 1117 H* 12/06/18 08:57: Magnesium 1.5 12/06/18 10:20: Ammonia 31 Medical History: Reports:: Atherosclerotic Heart Disease, Cardiomyopathy, Coronary Artery Disease, Deep Vein Thrombosis, Hypertension Denies:: Cancer, Diabetes Mellitus Type 1, Diabetes Mellitus Type 2, MRSA Assessment and Plan (1) Rhabdomyolysis Current visit: Yes Status: Acute Category: Medical Code(s): M62.82 - Rhabdomyolysis (2) Psychogenic formication Current visit: Yes Status: Acute Category: Medical Code(s): R20.2 - Paresthesia of skin; F54 - Psychological and behavioral factors associated with disorders or diseases classified elsewhere (3) Acute psychosis Current visit: Yes Status: Acute Category: Medical Code(s): F23 - Brief psychotic disorder (4) Substance abuse Current visit: Yes Status: Acute Category: Medical Code(s): F19.10 - Other psychoactive substance abuse, uncomplicated (5) Hypokalemia Cu
--- NOTE | 2018-12-06 16:53 | XR_ITS ---
XR chest portable HISTORY: ITS.REASON: cough ORDERING PHYSICIAN: Ramesh Brennan MD PATIENT AGE: 53 years COMPARISON: 12/04/2018 FINDINGS: The cardiomediastinal silhouette and pulmonary vascularity are within normal limits. The lungs are clear without infiltrates, suspicious nodules, or pleural effusions. Right basilar atelectasis has improved. Left hilum is less prominent on this nonrotated exam. No acute bony abnormalities. IMPRESSION: No acute finding
--- NOTE | 2018-12-06 18:06 | PC.NURSE ---
patient still complaining about bugs all over him and stating i am vomiting bugs .. passed this along to fur storage clerk. he is complaining of pain under his fingers as well from the bugs asking if he can have something for pain. fur storage clerk ordered ibuprofen. patient has been up to bathroom and will not allow staff to assist because he was embarrassed to have females see him this way undressed and going to bathroom. has not been menan with staff but is teary eyed and anxious at times but can be redirected. vss will continue to monitor.
--- NOTE | 2018-12-06 18:48 | PC.NURSE ---
patient has had an increase in agitation and becoming very upset and anxious administered haldol im at this time. educated patient on this as well, and reasoning for it.
--- NOTE | 2018-12-06 19:16 | PC.NURSE ---
report given to arsen
--- NOTE | 2018-12-07 03:48 | PC.NURSE ---
A&OX3. SCABBED AREAS NOTED T/O FACE, EXTREMITIES, AND ABD. DIMINISHED LUNG SOUNDS NOTED T/O BILAT. LUNGS. LOOSE, INTERMITTENT PRODUCTIVE COUGH NOTED WITH THICK, YELLOW SPUTUM. +2 PITTING EDEMA NOTED TO RLE. PT. C/O GENERALIZED PAIN RATING 6/10; TX WITH IBUPROFEN PER SEP; EFFECTIVENESS NOTED.PT. HAS BEEN RESTING IN BED WITH EYES CLOSED T/O THIS SHIFT. IV PATENT AND INFUSING SHOWING NO S/S OF INFILTRATION. VSS. WILL CONTINUE TO MONITOR.
[2018-12-07 04:00] VITALS: BP 107/60; PULSE 81; RESP 18; TEMP 36.5; O2SAT 98
[2018-12-07 05:28] VITALS: BMI 29.1
[2018-12-07 06:20] LABS: Alanine Aminotransferase 25 U/L (12-78); Albumin Level 2.4 gm/dL (3.4-5.0); Albumin/Globulin Ratio 0.8 (1.1-1.8); Alkaline Phosphatase 81 U/L (46-116); Anion Gap 12.3 mEq/L (5-15); Aspartate Amino Transferase 30 U/L (15-37); Bilirubin,Total 0.3 mg/dL (0.2-1.0); Blood Urea Nitrogen 13 mg/dL (7-18); Calcium 7.5 mg/dL (8.5-10.1); Carbon Dioxide 26 mmol/L (21.0-32.0); Chloride 108 mmol/L (98-107); Creatinine Clearance Estimated 138 mL/min (50-200); Creatinine,Serum 0.87 mg/dL (0.70-1.30); Estimated Glomerular Filt Rate 91 ml/min (>60); GFR (African American) 111 ML/MIN (>60); Globulin 3.1 gm/dl (1.3-3.2); Glucose 139 mg/dL (74-106); Potassium 3.3 mmoL/L (3.5-5.1); Sodium 143 mmol/L (136-145); Total Protein,Serum 5.5 gm/dL (6.4-8.2)
--- NOTE | 2018-12-07 07:26 | PC.NURSE ---
REPORT GIVEN TO Bonnie BROWNE
[2018-12-07 08:00] VITALS: BP 106/48; PULSE 78; RESP 18; TEMP 36.6; O2SAT 99
--- NOTE | 2018-12-07 08:34 | HMH.PHAVTE ---
[facility] Pharmacy VTE Monitoring - Patient Demographics Admission date: 12/06/18 Report Date: 12/07/18 Time: 08:34 Allergies/Adverse Reactions: Patient Allergies No Known Allergies Allergy (Verified 11/05/18 10:39) Height: 1.85 m Weight: 100.244 kg Patient Problems: Current Active Problems (Updated 12/06/18 @ 12:50 by Tomi hWitfield MD) Acute psychosis (Acute) Substance abuse (Acute) Rhabdomyolysis (Acute) Psychogenic formication (Acute) Rhabdomyolysis (Acute) Hypokalemia (Acute) Cough (Acute) - VTE Risk Labs: VTE Related Lab Results Hgb 12.8 g/dL (14.1-18.0) L 12/06/18 06:25 Hct 36.1 % (42.0-52.0) L 12/06/18 06:25 Plt Count 244 K/mm3 (142-424) 12/06/18 06:25 BUN 13 mg/dL (7-18) D 12/07/18 05:55 Creatinine 0.87 mg/dL (0.70-1.30) D 12/07/18 05:55 Estimated Creat Clear 138 mL/min (50-200) 12/07/18 05:55 Was VTE Risk Assessment Performed: No VTE Score: 2 VTE Risk Level: Very Low Risk - Prophylaxis VTE Prophylaxis Ordered?: Yes Types of VTE Prophylaxis: TEDS Knee High Location of Applied Device: Bilateral Lower Extremeties - VTE Diagnosis Confirmed Treatment or plan recommended: Continue Current Treatment
--- NOTE | 2018-12-07 08:58 | HMH.PHAINT ---
MEDICATION RECONCILIATION COMPLETED ON PATIENT USING EXTERNAL FILL HISTORY FROM PHARMACY AND ALSO LIST FROM PHYSICIAN'S OFFICE. -WILVER SMITHD
--- NOTE | 2018-12-07 09:18 | HMH.DCSUM ---
General - General Admission date:: 12/06/18 Discharge date: 12/07/18 HPI HPI: 53-year-old male brought to the emergency department by law enforcement over mental status changes. Apparently the initial reason for the visit was for medical clearance in anticipation of transportation to [facility]. However during the work-up in addition to the mental status changes and ongoing formication patient was found to have mild rhabdomyolysis. Attempt was made to give the patient boluses of IV fluids to reduce his CPK but this was unsuccessful. Patient developed hypokalemia after fluids. Decision was made to admit for IV fluid replacement to prevent renal damage from rhabdomyolysis as well as replace potassium. Patient has been identified as a user of methamphetamines and has oxycodone listed as a medication. Urine drug screens performed on December 05 and December 06 were positive for both opiates and methamphetamines. At time of interview with me patient was drowsy and hard to awaken. He denied use of any illicit substances but is able to state that someone gave him those substances without him knowing or against his will. Hospital Course Hospital Course: Rhabdo-fluid replacement was decreased potassium so potassium supplements given. Coughing up yellow-green thick sputum antibiotics started and continued as an outpatient CT of the head was negative Patient denies any illegal drug use states that he does not know how it got in his system. Today patient is alert and oriented states ready to go home. Patient refusing rehab patient states I do not have a drug problem Patient refusing to go to [facility] for evaluation but states he will follow-up with psych nurse practitioner as an outpatient Objective Vital signs: Temp Pulse Resp BP Pulse Ox 97.9 F 78 18 106/48 L 99 12/07/18 08:00 12/07/18 08:00 12/07/18 08:00 12/07/18 08:00 12/07/18 08:00 no acute distress - *Routine HEENT Exam Head: Present: normocephalic Eye: Present: PERRL ENT: Present: mucous membranes moist - *Routine Neck Exam Present: full ROM - *Routine Respiratory Exam Present: CTA bilaterally - *Routine Cardiovascular Exam Present: RRR - *Routine Abdominal Exam Present: soft, normoactive bowel sounds - *Routine Extremities Exam Present: full ROM - *Routine Skin Exam Present: wounds Comments: Scattered scabbed areas throughout body - *Routine Neurological Exam Present: alert, oriented X3 - Routine Psychiatric Exam Present: normal affect Results Labs on day of discharge: Labs from last 24 hours 12/07/18 12/06/18 12/06/18 05:55 10:20 08:57 Sodium 143 Potassium 3.3 L Chloride 108 H Carbon Dioxide 26 Anion Gap 12.3 BUN 13 D Creatinine 0.87 D Estimated Creat Clear 138 Estimated GFR 91 Est GFR ( Amer) 111 D Glucose 139 H D Calcium 7.5 L Magnesium 1.5 Total Bilirubin 0.3 AST 30 D ALT 25 D Alkaline Phosphatase 81 Ammonia 31 Total Creatine Kinase Total Protein 5.5 L Albumin 2.4 L D Globulin 3.1 Albumin/Globulin Ratio 0.8 L 12/06/18 08:57 Sodium 142 Potassium 2.9 L* Chloride 106 Carbon Dioxide 25 Anion Gap 13.9 BUN 20 H Creatinine 1.11 Estimated Creat Clear 107 Estimated GFR 69 Est GFR ( Amer) 84 Glucose 86 D Calcium 7.7 L Magnesium Total Bilirubin AST ALT Alkaline Phosphatase Ammonia Total Creatine Kinase 1117 H* Total Protein Albumin Globulin Albumin/Globulin Ratio - Additional Comments Rounded with Dr. Brennan all orders per Anu DS: Diagnosis - Discharge Diagnosis (1) Rhabdomyolysis Status: Acute (2) Psychogenic formication Status: Acute (3) Acute psychosis Status: Acute (4) Substance abuse Status: Acute (5) Hypokalemia Status: Acute (6) Cough Status: Acute Discharge Plan - Patient Discharge Instructions ACTIVITY:
--- NOTE | 2018-12-07 10:48 | SW/DCPLANNER ---
I have spoke with this patient this morning regarding discharge plans. Patient and I had a lengthy conversation regarding [facility] and patient has refused to go at this time. Patient is not a candidate for an involuntary hold at this time due to being compliant, answering questions appropriately, and not being suicidal/harm to self. Patient stated that he was homeless and did not have anywhere to go. Patient had me call and speak with his mother and ex-: mother stated she would be to get him in [place] tomorrow, and his ex- stated that she does not want to speak to him or have him at her house. Patient verbalized that he understood. I informed patient of different homeless shelters in [place] and patient did not appear interested. Patient stated that he just wants to be discharged today. Patient stated that he would figure out a plan till his mother can get to him tomorrow. Care Management Specialist (LUIS) stated that Dr Brennan was fine with this patient discharging home today. I also contacted [facility] [employer] [facility], [facility]. Ozzie has stated that they are fine with this patient discharging and do not have a need for interaction with this patient. I was notified back by Niranjan Chavis stating that this patient is now willing to go to [facility] voluntarily. I did go back and speak with patient again and his only question was: can I leave whenever I want? I explained to this patient that his plan of care would be between [facility] and him: patient then refused and is just wanting to discharge home. Patient will discharge home today.
--- NOTE | 2018-12-07 11:39 | PC.NURSE ---
Pt remains oriented but inappropriate at times thinking his scabs on his skin are bugs. Pt reports his will not let him come home, which is where he was living prior to admission. Case management and RN spoke at length about benefits of admission to [facility]. Pt refused to go to [facility] and reports he would like to be let go and will find somewhere to go. Pt ambulated in room with steady gait and dressed himself. Last dose of Vancomycin IV given then IV d/c. D/c instructions given with script for abx. Spoke with mother on the phone who reports she knows it's the meth that's messed up his brain and she is unable to come get him with no money or access to transportation.
== END 2018-12-07 11:30 | disposition home or self-care (01) | DRG 558 ==
LOC: ER 07:02 → 2ND 10:07
PROVIDERS: Emergency Medicine Emergency Medical Services; Admitting Provider Family Medicine; Emergency Provider Emergency Medicine; Visit Provider Emergency Medicine
DX: M62.82 Rhabdomyolysis (principal); E87.6 Hypokalemia; F11.10 Opioid abuse, uncomplicated; F15.10 Other stimulant abuse, uncomplicated
CPT/HCPCS: 36415; 70450; 71045; 80048; 80053; 80305; 80329; 81001; 82140; 82550; 82553; 83735; 84484; 85025; 87205; 93005; 96365; 96375; 99211; 99281; 99284; J2310; J3370